=== PATIENT | female | born 2000 | race Caucasian/White ===

== ENCOUNTER 2021-02-26 10:53 | Inpatient (IN) | payer BC ==
[2021-02-26 11:27] VITALS: BMI 22.6
[2021-02-26] MEDS ORDERED: Ondansetron PF 4 MG/2 ML Vial IVP PRN (12:04)
[2021-02-26] MEDS ORDERED: hydrALAZINE 20 MG/ML VIAL SLOW IVP PRN (12:04)
[2021-02-26] MEDS ORDERED: Methylergonovine 0.2 MG/ML VIAL IM PRN (12:04)
[2021-02-26] MEDS ORDERED: Misoprostol 200 MCG TAB PR PRN (12:04)
[2021-02-26] MEDS ORDERED: Promethazine HCl 25 MG/ML VIAL IM PRN (12:04)
[2021-02-26] MEDS ORDERED: Carboprost 250 MCG/ML AMP IM PRN (12:04)
[2021-02-26] MEDS ORDERED: Lidocaine 1% (PF) 30 ML VIAL SC PRN (12:04)
[2021-02-26] MEDS ORDERED: Acetaminophen 500 MG TAB PO PRN (12:04)
[2021-02-26] MEDS ORDERED: Ibuprofen 800 MG TAB PO PRN (12:04)
[2021-02-26] MEDS ORDERED: NS w/ Oxytocin 30 units 500 ML IV SCH ×2 (12:15)
[2021-02-26 13:25] LABS: Hemoglobin 12.5 g/dL (12.0-15.5); Mean Corpuscular HGB CONC 32.4 g/dL (32.0-36.0); Mean Corpuscular Hemoglobin 28.3 pg (27.0-33.0); Mean Corpuscular Volume 87.5 fl (81.6-98.3); Mean Platelet Volume 11.1 fl (7.4-10.4); Platelet Count 212 10x3/uL (150-450); RBC Distribution Width 13.8 % (11.5-14.5); Red Blood Cell (RBC) Count 4.41 10x6/uL (3.90-5.03); White Blood Cell (WBC) Count 12.4 10x3/uL (3.5-10.5)
[2021-02-26 13:55] LABS: Hep B Surf Ag Non-Reactive S/CO (NonReactive); Syphilis Antibody Nonreactive (Nonreactive); Syphilis Antibody Index 0.03 S/CO (<1.00 Non-Reactive)
[2021-02-26 14:10] LABS: HBSAg Index 0.17 S/CO (0-0.99)
[2021-02-26 14:29] LABS: SARS-CoV-2 NAA Rapid Test Not Detected (NotDetected)
[2021-02-26] MEDS: Butorphanol Tartrate 1 MG/ML VIAL SLOW IVP PRN ×2 (16:45→17:55)
[2021-02-26] MEDS ORDERED: Fentanyl 2 mcg/Bup 0.1% Cadd 100 ML ONE (18:28)
[2021-02-26] MEDS ORDERED: Lidocaine 1% (PF) 30 ML VIAL ONE (20:11)
[2021-02-26] MEDS ORDERED: Methylergonovine 0.2 MG/ML VIAL ONE (23:09)
[2021-02-27] MEDS ORDERED: Measles/Mumps/Rubella 10 MCG/0.5 ML VIAL SC ONE (00:01)
[2021-02-27] MEDS ORDERED: Misoprostol 200 MCG TAB VAG PRN (00:01)
[2021-02-27] MEDS ORDERED: NS w/ Oxytocin 30 units 500 ML IV SCH (00:01)
[2021-02-27] MEDS ORDERED: hydrALAZINE 20 MG/ML VIAL SLOW IVP PRN (00:01)
[2021-02-27] MEDS ORDERED: Benzocaine-Menthol 82.5 ML CAN TOP PRN (00:01)
[2021-02-27] MEDS ORDERED: Methylergonovine 0.2 MG/ML VIAL IM PRN (00:01)
[2021-02-27] MEDS ORDERED: Ondansetron PF 4 MG/2 ML Vial IVP PRN (00:01)
[2021-02-27] MEDS ORDERED: Boostrix 0.5 ML (Tdap) VIAL IM ONE (00:01)
[2021-02-27] MEDS ORDERED: HYDROcodone/Acetaminophen 5/325 mg Tablet PO PRN ×2 (00:01)
[2021-02-27] MEDS ORDERED: Milk Of Magnesia 30 ML UDCUP PO PRN (00:01)
[2021-02-27] MEDS ORDERED: Bisacodyl 10 MG SUPP PR PRN (00:01)
[2021-02-27] MEDS: Ibuprofen 800 MG TAB PO SCH ×3 (08:00→22:24)
[2021-02-27] MEDS: Docusate Calcium (SURFAK) 240 MG CAP PO SCH ×2 (08:02→22:25)
[2021-02-27] MEDS: Ferrous Sulfate 325 MG TAB PO SCH ×2 (08:03→15:31)
[2021-02-28] MEDS: Ibuprofen 800 MG TAB PO SCH ×2 (06:05→14:29)
[2021-02-28] MEDS: Ferrous Sulfate 325 MG TAB PO SCH (07:22)
[2021-02-28 07:41] VITALS: BP 114/73; TEMP 98.3
[2021-02-28] MEDS: Docusate Calcium (SURFAK) 240 MG CAP PO SCH (09:04)
== END 2021-02-28 16:42 | disposition home or self-care (01) | DRG 807 ==
LOC: CSHLD/OP 10:53 → CSHLD 14:50 → CSHPED 02-27 00:15
PROVIDERS: ADMIT Obstetrics & Gynecology; ATTEND Obstetrics & Gynecology
PROC: 10E0XZZ Delivery of Products of Conception, External Approach (ICD-10-PCS; principal; 2021-02-26)
PROC: 0KQM0ZZ Repair Perineum Muscle, Open Approach (ICD-10-PCS; 2021-02-26)
DX: O76 Abnormality in fetal heart rate and rhythm complicating labor and delivery (principal); Z37.0 Single live birth; Z3A.37 37 weeks gestation of pregnancy; Z20.822 Contact with and (suspected) exposure to COVID-19; O70.1 Second degree perineal laceration during delivery
CPT/HCPCS: 85027; 86780; 86850; 86900; 86901; 87340; 99285; J0595; J2590; U0002

== ENCOUNTER 2021-12-05 13:34 | Emergency (ER) | payer BC ==
[2021-12-05] MEDS ORDERED: Ketorolac Tromethamine 30 MG/ML VIAL ONE (14:20)
== END 2021-12-05 15:17 | disposition home or self-care (01) ==
LOC: CSHERS 13:34
DX: M25.512 Pain in left shoulder (principal)
CPT/HCPCS: 96374; J1885